=== PATIENT | female | born 1990 | race Caucasian/White ===

== ENCOUNTER 2019-10-30 18:08 | Emergency (ER) | payer MEDICAID ==
[~2019-10-30] VITALS: Ht 167.6 cm; Wt 51.6 kg
[~2019-10-30 18:08] MED LIST: BUSP5TAB2 PO; DIVA500T2 PO; OLAN15TA9 PO; TEST200V3 IM
[2019-10-30] MEDS ORDERED: KETOROLAC 30 MG/1 ML ONE (18:51)
[2019-10-30] MEDS ORDERED: METHOCARBAMOL 750 MG TABLET ONE (18:51)
[2019-10-30] MEDS ORDERED: METHOCARBAMOL 750 MG TABLET PO ONE (19:00)
[2019-10-30] MEDS ORDERED: KETOROLAC 30 MG/1 ML IM ONE (19:00)
--- NOTE | 2019-10-30 19:01 | NUR ---
report given to oscar orr.
== END 2019-10-30 19:44 | disposition home or self-care (01) ==
LOC: MERGE 18:08 → ED 19:40
DX: G89.29 Other chronic pain (principal); M54.5 Low back pain; Z87.891 Personal history of nicotine dependence
CPT/HCPCS: 96372; 99283; J1885

== ENCOUNTER 2020-09-07 15:35 | Emergency (ER) | payer MEDICAID ==
[~2020-09-07] VITALS: Ht 167.6 cm; Wt 57.0 kg
[~2020-09-07 15:35] MED LIST changes: +OLAN15TA14 PO; -OLAN15TA9 PO
[2020-09-07 15:42] VITALS: BP 88/62
--- NOTE | 2020-09-07 16:11 | NUR ---
PT C/O SEVERAL DAYS OF BACK PAIN "SHOOTING" DOWN BOTH LEGS. UPON RN ENTRY TO ROOM, PT SITTING UP IN [place], RESPIRATIONS EVEN AND UNLABORED ON RA WITH CELL PHONE USE. NAD NOTED. SIDE RAIL UP CALL LIGHT IN REACH.
[2020-09-07] MEDS ORDERED: IBUPROFEN 200 MG TABLET PO ONE (16:30)
== END 2020-09-07 17:24 | disposition home or self-care (01) ==
LOC: ED 16:23
DX: S29.012A Strain of muscle and tendon of back wall of thorax, initial encounter (principal); J45.909 Unspecified asthma, uncomplicated; Z87.891 Personal history of nicotine dependence; X58.XXXA Exposure to other specified factors, initial encounter; Y93.89 Activity, other specified; Y92.89 Other specified places as the place of occurrence of the external cause; Y99.8 Other external cause status
CPT/HCPCS: 99283

== ENCOUNTER 2020-09-22 20:39 | Emergency (ER) | payer MEDICAID ==
[~2020-09-22] VITALS: Ht 167.6 cm; Wt 54.8 kg
[2020-09-22 21:00] VITALS: BP 98/70
[2020-09-22] MEDS ORDERED: SODIUM CHLORIDE 0.9% 1,000ML IVBOLUS ONE (21:30)
[2020-09-22] MEDS ORDERED: FAMOTIDINE 20 MG/2 ML IVPush ONE (21:30)
[2020-09-22] MEDS ORDERED: ONDANSETRON 2MG/ML, 2ML IVPush ONE (21:30)
[2020-09-22 21:37] LABS: BASOPHILS % (AUTO) 1 % (0-1); EOSINOPHILS % (AUTO) 1 % (1-7); LYMPHOCYTES % (AUTO) 14 % (22-44); MEAN CORPUSCULAR HEMOGLOBIN 30.1 pg (27.0-34.8); MEAN CORPUSCULAR HGB CONC 34.1 g/dL (32.4-35.8); MEAN PLATELET VOLUME 8.6 fL (7.4-10.4); MONOCYTES % (AUTO) 10 % (2-9); NEUTROPHILS % (AUTO) 75 % (42-75); PLATELET COUNT 177 x10^3/uL (130-400); RED BLOOD COUNT 4.09 x10^6/uL (3.82-5.3); RED CELL DISTRIBUTION WIDTH 14.2 % (9.6-15.2)
[2020-09-22 21:48] LABS: ALANINE AMINOTRANSFERASE 11 U/L (12-78); ALBUMIN 3.4 g/dL (3.4-5.0); ANION GAP 9 mmol/L (5-15); CALCIUM 9.5 mg/dL (8.5-10.1); CHLORIDE 102 mmol/L (98-107); CREATININE 1.11 mg/dL (0.55-1.02)
[2020-09-22 21:50] LABS: ALKALINE PHOSPHATASE 92 U/L (45-117); BILIRUBIN,TOTAL 1.1 mg/dL (0.2-1.0); TOTAL PROTEIN 8.5 g/dL (6.4-8.2)
--- NOTE | 2020-09-23 01:26 | NUR ---
PT CALLED FOR ROOM. NA X 1
--- NOTE | 2020-09-23 01:42 | NUR ---
NA X 2 WHEN CALLED TO ROOM
--- NOTE | 2020-09-23 02:05 | NUR ---
NA X 3
== END 2020-09-23 02:07 | disposition left against medical advice (07) ==
LOC: ED 23:59
DX: R10.10 Upper abdominal pain, unspecified (principal); R11.10 Vomiting, unspecified; F12.10 Cannabis abuse, uncomplicated
CPT/HCPCS: 36415; 80053; 83690; 85025; 99283